=== PATIENT | female | born 1955 | race Caucasian/White ===

== ENCOUNTER 2017-09-03 08:59 | Day surgery (SDC) | payer BC ==
[2017-09-03] MEDS ORDERED: PROPOFOL 500 MG/50 ML EMU IV ONE (11:34)
[2017-09-03] MEDS ORDERED: LIDOCAINE HCL 1% MPF SOL ONE (11:35)
[2017-09-03 12:08] VITALS: RESP 20
[2017-09-03 12:14] VITALS: BP 149/67; PULSE 55; TEMP 97.2; O2SAT 100
== END 2017-09-03 12:25 | disposition home or self-care (01) ==
LOC: SURG 08:59
PROVIDERS: ATTEND Surgery
DX: Z12.11 Encounter for screening for malignant neoplasm of colon (principal); Z86.010 Personal history of colon polyps; K57.30 Diverticulosis of large intestine without perforation or abscess without bleeding
CPT/HCPCS: J2001; J2704